=== PATIENT | male | born 1975 | race Caucasian/White ===

== ENCOUNTER 2017-05-25 12:43 | Emergency (ER) | payer SELFPAY ==
[2017-05-25 12:48] VITALS: BP 110/79; PULSE 115; RESP 16; TEMP 97.7; O2SAT 98
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
== END 2017-05-25 14:30 | disposition home or self-care (01) ==
DX: M54.31 Sciatica, right side (principal); F17.200 Nicotine dependence, unspecified, uncomplicated